=== PATIENT | male | born 1970 | race Caucasian/White ===

== ENCOUNTER 2020-02-29 00:23 | Emergency (ER) | payer OTHER, SELFPAY ==
--- NOTE | ~2020-02-29 | CT_ITS ---
EXAMINATION: CT wrist LT wo con DATE: 02/29/2020 03:07 INDICATION: Left wrist pain, possible fracture on CT TECHNIQUE: Computed tomography (CT) of the left wrist was performed without intravenous contrast. The dose-length product (DLP) was 344.99 mGy-cm. Automated exposure control and iterative reconstruction technique were employed. COMPARISON: None FINDINGS: There is a small acute, traumatic, closed, oblique fracture at the dorsal aspect of the tri quetral bone. There is adjacent soft tissue swelling. The remaining osseous structures are unremarkab le. Bone alignment is normal. IMPRESSION: 1. Acute triquetral fracture. Reviewed, dictated and finalized at location A.
--- NOTE | ~2020-02-29 | XR_ITS ---
EXAMINATION: XR hand LT min 3V INDICATION: Right hand pain TECHNIQUE: Three views of the right hand are obtained. COMPARISON: None available FINDINGS: There is no acute fracture, dislocation, or subluxation. Bone alignment is normal. 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 The soft tissues are unremarkable. IMPRESSION: 1. No acute osseous abnormality. Reviewed, dictated and finalized at location A.
--- NOTE | ~2020-02-29 | XR_ITS ---
EXAMINATION: XR wrist LT min 3V DATE: 02/29/2020 02:12 INDICATION: Left wrist pain, initial encounter TECHNIQUE: Posteroanterior, ulnar deviation, oblique, and lateral views of the left wrist were obtain ed. COMPARISON: None available FINDINGS: Subtle heterotopic ossification is seen dorsal to the carpal bones on the lateral view. The re is adjacent dorsal soft tissue swelling of the wrist. Bone alignment is normal. IMPRESSION: 1. Findings suspicious for triquetral fracture. Reviewed, dictated and finalized at location A.
--- NOTE | ~2020-02-29 | XR_ITS ---
EXAMINATION: XR hand RT min 3V INDICATION: Right hand pain TECHNIQUE: Three views of the right hand are obtained. COMPARISON: None available FINDINGS: There is no fracture, dislocation, or subluxation. Mild osteoarthritis is noted in multiple interphalangeal joints. The soft tissues are unremarkable. IMPRESSION: 1. No acute osseous abnormality. Reviewed, dictated and finalized at location A.
--- NOTE | ~2020-02-29 | CT_ITS ---
EXAMINATION: CT cervical spine wo con DATE: 02/29/2020 02:13 INDICATION: Neck pain TECHNIQUE: Computed tomography (CT) of the cervical spine was performed without intravenous contrast. The dose-length product (DLP) was 513.79 mGy-cm. Automated exposure control and iterative reconstruc tion technique were employed. COMPARISON: None FINDINGS: There is an acute fracture involving the C3 spinous process of the left of midline. No disl ocation or subluxation is identified. Mild loss of intervertebral disc space height is present at C4- 5 and C5-6. The vertebral body heights are maintained. The odontoid is intact. The prevertebral soft tissues are normal. There is mild multilevel facet and uncovertebral joint osteoarthritis. IMPRESSION: 1. Acute C3 spinous process fracture. This was discussed with Dr. Gibbs at 1245 hours on 02/29/2020. Reviewed, dictated and finalized at location A. IMPRESSION: 1. Acute C3 spinous process fracture. This was discussed with Dr. Gibbs at 124 5 hours on 02/29/2020.
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
--- NOTE | ~2020-02-29 | CT_ITS ---
EXAMINATION: CT brain wo con INDICATION: Head injury COMPARISON: None TECHNIQUE: Standard unenhanced head CT. The dose-length product (DLP) was 681.00 mGy-cm. The mA was a djusted according to patient size. Iterative reconstruction technique was employed. FINDINGS: There is no intracranial hemorrhage, acute infarction, or abnormal mass lesion. The ventric les are normal. There is no abnormal mass effect or midline shift. The yang-white matter differentiat ion is normal. The basal cisterns are patent. The orbits are normal. There is mild midline scalp soft tissue swelling. There is moderate mucosal thickening of the paranasal sinuses. IMPRESSION: 1. No acute intracranial abnormality. Reviewed, dictated and finalized at location A.
--- NOTE | ~2020-02-29 | XR_ITS ---
EXAMINATION: XR finger 1st RT min 2V INDICATION: Right first finger pain TECHNIQUE: Two views of the right first finger are obtained. COMPARISON: None available FINDINGS: There is no fracture, dislocation, or subluxation. A small osseous density at the lateral b ase of the first proximal phalanx may reflect prior injury. The soft tissues are unremarkable. IMPRESSION: 1. No acute osseous abnormality. Reviewed, dictated and finalized at location A.
--- NOTE | ~2020-02-29 | XR_ITS ---
EXAMINATION: XR wrist RT min 3V INDICATION: Right wrist pain TECHNIQUE: Four views of the right wrist are obtained. COMPARISON: None available FINDINGS: There is no fracture, dislocation, or subluxation. The bones, soft tissues, and joint space s are normal. IMPRESSION: 1. No acute osseous abnormality. Reviewed, dictated and finalized at location A.
--- NOTE | ~2020-02-29 | XR_ITS ---
EXAMINATION: XR finger 1st LT min 2V INDICATION: Left first finger pain TECHNIQUE: Two views of the left first finger are obtained. COMPARISON: None available FINDINGS: There is no acute fracture, dislocation, or subluxation. Mild osteoarthritis is noted. The soft tissues are unremarkable. IMPRESSION: 1. No acute osseous abnormality. Reviewed, dictated and finalized at location A.
[2020-02-29 00:23] VITALS: BP 120/83; PULSE 98; RESP 20; TEMP 36.8; O2SAT 97
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
[2020-02-29] MEDS: TETANUS,DIPHTHERIA,AC PERTUSSIS ADULT 0.5 ML (ADACEL) IM (01:26)
[2020-02-29] MEDS: ACETAMINOPHEN 500 MG TABLET 1000 MG PO (01:26)
[2020-02-29 01:34] LABS: Basophils Absolute Auto 0.05 K/mm3 (0.00-0.10); Basophils Percent Auto 0.3 % (0.0-1.0); Eosinophils Absolute Auto 0.02 K/mm3 (0.02-0.50); Eosinophils Percent Auto 0.1 % (1.0-6.0); Hematocrit 43.8 % (40.0-54.0); Hemoglobin 14.9 g/dL (14.0-18.0); Immature Granulocyte Absolute 0.14 K/mm3 (0.00-0.00); Immature Granulocyte Percent A 0.9 % (0.0-0.0); Lymphocytes Absolute Auto 1.17 K/mm3 (1.10-4.50); Lymphocytes Percent Auto 7.5 % (18.0-42.0); Mean Corpuscular Hemoglobin 31.7 pg (27.0-31.0); Mean Corpuscular Volume 93.2 fL (78.0-102.0); Monocytes Absolute Auto 1.03 K/mm3 (0.10-0.90); Monocytes Percent Auto 6.6 % (2.0-11.0); Neutrophils Absolute Auto 13.2 K/mm3 (1.7-7.2); Neutrophils Percent Auto 84.6 % (50.0-70.0); Platelet Count Result 192 K/mm3 (150-420); Red Cell Distribution Width 12.5 % (11.6-14.4); White Blood Count 15.6 K/mm3 (4.8-10.8)
[2020-02-29 01:43] LABS: Appearance Urine Clear (Clear); Bilirubin Urine Negative (Negative); Color Urine Yellow (Yellow); Glucose Urine UA Negative (Negative); Ketones Urine Trace (Negative); Leukocyte Esterase Ur Negative (Negative); Nitrate Urine Negative (Negative); Protein Urine Trace (Negative); Urobilinogen Urine 0.2 mg/dL (0.2-1.0); pH Urine 5.5 (5.0-8.0)
[2020-02-29 01:50] LABS: Alanine Aminotransferase 60 U/L (16-63); Albumin Level 3.8 g/dL (3.4-5.0); Alkaline Phosphatase 47 U/L (46-116); Aspartate Amino Transferase 65 U/L (15-37); Bilirubin,Total 0.3 mg/dL (0.00-1.00); Blood Urea Nitrogen 17 mg/dL (7-18); Calcium 8.3 mg/dL (8.5-10.1); Carbon Dioxide 24 mmol/L (21-32); Chloride 102 mmol/L (98-108); Estimated Glomerular Filt Rate > 60; Ethanol 116 mg/dL (0-6); Glucose 103 mg/dL (70-99); Osmolality Calculated 285 mOsm/kg (285-295); Sodium 137 mmol/L (136-145); Total Protein 7.3 g/dL (6.4-8.2)
[2020-02-29 01:57] LABS: Add Urine Microscopic? YES; Bacteria Urine None seen /hpf; Blood Urine Trace-Intact (Negative); Mucus Urine None seen /lpf; RBC Urine 0-2 /hpf (0-2); Squamous Epithelial Cell Urine Few /hpf (Few); WBC Urine None seen /hpf (0-3)
[2020-02-29 02:01] LABS: Amphetamine Screen Urine Negative (Negative); Barbiturate Screen Urine Negative (Negative); Benzodiazepines Screen Urine Negative (Negative); Cannabinoid Screen Urine Positive (Negative); Cocaine Screen Urine Negative (Negative); Methadone Screen Urine Negative (Negative); Opiate Screen Urine Negative (Negative); Phencyclidine Screen Urine Negative (Negative)
--- NOTE | 2020-02-29 04:22 | PC.NURSE ---
call to [facility] for transfer, report to maria eugenia, awaiting call back
--- NOTE | 2020-02-29 04:24 | PC.NURSE ---
splint applied to left wrist as instructed per dr oconnell, volar forearm splint.
[2020-02-29 05:05] VITALS: BP 111/66; PULSE 87; RESP 20; TEMP 36.6; O2SAT 98
--- NOTE | 2020-02-29 05:08 | PC.NURSE ---
pt to transfer to [facility], [facility] called. awaiting arrival.
[2020-02-29] MEDS: MORPHINE SULFATE 4 MG/ML INJ 6 MG IV PUSH (05:28)
[2020-02-29] MEDS: ONDANSETRON INJ 4 MG/2 ML VIAL IV PUSH (05:29)
[2020-02-29] MEDS: NEOMYCIN/POLYMYXIN/BACITRACIN OINTMENT 15 GM TUBE 1 APPLIC TOPICAL (06:05)
--- NOTE | 2020-02-29 06:08 | PC.NURSE ---
cervical collar applied for transfer per request, ocl to left wrist with arm sling intact, abrasion to forehead cleansed and neosporin/non stick telfa applied. report to ana pettit. pt loaded with cot.
[2020-02-29 06:16] VITALS: BP 105/75; PULSE 84; RESP 20; TEMP 37.1; O2SAT 97
== END 2020-02-29 06:15 | disposition short-term general hospital (02) ==
PROVIDERS: Emergency Provider Family Medicine; PCP Internal Medicine
DX: R20.2 Paresthesia of skin (principal); S00.93XA Contusion of unspecified part of head, initial encounter; S20.311A Abrasion of right front wall of thorax, initial encounter; S40.811A Abrasion of right upper arm, initial encounter; S62.115A Nondisplaced fracture of triquetrum [cuneiform] bone, left wrist, initial encounter for closed fracture; V86.59XA Driver of other special all-terrain or other off-road motor vehicle injured in nontraffic accident, initial encounter
CPT/HCPCS: 29125; 36415; 70450; 71260; 72125; 73110; 73130; 73140; 73200; 74177; 80053; 80307; 81001; 85025; 90471; 90715; 96374; 96375; 99285; A4565; J2270; J2405; L0150; Q9965

== ENCOUNTER 2020-03-30 08:40 | Outpatient (CLI) | payer OTHER, SELFPAY ==
--- NOTE | ~2020-03-30 | MR_ITS ---
EXAMINATION: MR abdomen wo/w con DATE: 03/30/2020 10:19 INDICATION: Right renal mass TECHNIQUE: Magnetic resonance imaging (MRI) of the abdomen was performed without and with 20 mL Multi duke intravenous contrast. Sequences included coronal T2-weighted SS-FSE, coronal and axial FS 2D-F IESTA, axial STIR FSE, axial T2-weighted SS-FSE, axial T2-weighted FS SS-FSE, axial diffusion-weighte d SE, axial dual-echo T1-weighted FSPGR, and axial and coronal T1-weighted LAVA. Postcontrast axial T 1-weighted LAVA images were obtained in a time course. Postcontrast coronal T1-weighted LAVA images w ere obtained. COMPARISON: CT abdomen and pelvis dated 02/29/2020 FINDINGS: Arch size is normal. No pericardial or pleural effusion. Discoid atelectasis/scarring in the left low er lobe. Liver, gallbladder, spleen, pancreas and bilateral adrenal glands are normal. T2 hyperintens e, nonenhancing cysts measuring 11 mm at the upper pole and 13 mm at the lower pole of the right kidn ey and 8 mm at the lower pole of the left kidney. 2.1 cm T1 hyperintense, T2 isointense to the protei naceous/hemorrhagic complex septated cystic lesion at the lower pole of the right kidney. There is pe rceptible enhancement along the thickened posterior inferior aspect of the septation which measures u p to 1-2 mm in thickness. No other enhancing or more nodular soft tissue component. Visualized portio n of the bowels are unremarkable. No pathologically enlarged abdominal lymphadenopathy. Small fat-con taining umbilical hernia. Bone marrow signal is normal. IMPRESSION: 1. 2.1 cm Bosniak 2F lesion at the lower pole of the right kidney with perceptible enhancement along the mildly thickened side of a single otherwise thin internal septation. Recommend follow-up pre and postcontrast MRI or CT in 6 months. Reviewed, dictated and finalized at location A. IMPRESSION: 1. 2.1 cm Bosniak 2F lesion at the lower pole of the right kidney with percepti ble enhancement along the mildly thickened side of a single otherwise thin inte rnal septation. Recommend follow-up pre and postcontrast MRI or CT in 6 months.
[2020-03-30 09:47] LABS: Basophils Absolute Auto 0.06 K/mm3 (0.00-0.10); Eosinophils Absolute Auto 0.36 K/mm3 (0.02-0.50); Eosinophils Percent Auto 5.9 % (1.0-6.0); Immature Granulocyte Absolute 0.05 K/mm3 (0.00-0.00); Immature Granulocyte Percent A 0.8 % (0.0-0.0); Lymphocytes Percent Auto 31.4 % (18.0-42.0); Mean Corpuscular HGB Conc 34.9 g/dL (32.0-36.0); Mean Corpuscular Hemoglobin 31.3 pg (27.0-31.0); Mean Corpuscular Volume 89.8 fL (78.0-102.0); Mean Platelet Volume 8.9 fl (8.7-11.0); Monocytes Absolute Auto 0.51 K/mm3 (0.10-0.90); Monocytes Percent Auto 8.4 % (2.0-11.0); Neutrophils Absolute Auto 3.2 K/mm3 (1.7-7.2); Neutrophils Percent Auto 52.5 % (50.0-70.0); Platelet Count Result 187 K/mm3 (150-420); Red Blood Count 4.79 M/mm3 (4.70-6.10); Red Cell Distribution Width 11.8 % (11.6-14.4); White Blood Count 6.1 K/mm3 (4.8-10.8)
--- NOTE | 2020-03-30 09:50 | ECG_ITS ---
Measurements Intervals Peterson Rate: 67 P: 64 WY: 141 QRS: 58 QRSD: 102 T: 47 QT: 373 QTc: 394 Interpretive Statements SINUS RHYTHM BASELINE WANDER- V1 NORMAL ECG Electronically Signed On 03-30-2020 10:02:46 CDT by Shiva Thomas D.O.
[2020-03-30 09:52] LABS: Add Urine Microscopic? NO; Appearance Urine Clear (Clear); Bilirubin Urine Negative (Negative); Blood Urine Negative (Negative); Color Urine Yellow (Yellow); Glucose Urine UA Negative (Negative); Ketones Urine Negative (Negative); Leukocyte Esterase Ur Negative LEU/UL (Negative); Nitrate Urine Negative (Negative); Protein Urine Negative (Negative); Specific Grav Ur 1.015 (1.010-1.020); Urobilinogen Urine 0.2 mg/dL (0.2-1.0); pH Urine 6.5 (5.0-8.0)
[2020-03-30 10:51] LABS: Anion Gap 10.4 mmol/L (7-16); Blood Urea Nitrogen 14 mg/dL (7-18); Calcium 9.2 mg/dL (8.5-10.1); Carbon Dioxide 28 mmol/L (21-32); Chloride 103 mmol/L (98-108); Estimated Glomerular Filt Rate > 60; Glucose 94 mg/dL (70-99); Osmolality Calculated 284 mOsm/kg (285-295); Potassium 4.4 mmol/L (3.5-5.1); Sodium 137 mmol/L (136-145)
[2020-03-30 14:08] LABS: Alanine Aminotransferase 52 U/L (16-63); Albumin Level 3.7 g/dL (3.4-5.0); Alkaline Phosphatase 50 U/L (46-116); Aspartate Amino Transferase 16 U/L (15-37); Bilirubin Direct 0.1 mg/dL (0-0.2); Bilirubin,Total 0.3 mg/dL (0.00-1.00); Total Protein 6.9 g/dL (6.4-8.2)
[2020-03-31 17:15] LABS: GGT 76 U/L (15-85)
== END 2020-03-30 08:41 | disposition home or self-care (01) ==
LOC: CHSIMG 08:44
PROVIDERS: PCP Internal Medicine; Visit Provider Internal Medicine
DX: Z01.818 Encounter for other preprocedural examination (principal); R94.5 Abnormal results of liver function studies
CPT/HCPCS: 36415; 74183; 80048; 80076; 81003; 82977; 85025; 93005; A9577

== ENCOUNTER 2020-09-22 09:58 | Outpatient (CLI) | payer OTHER, SELFPAY ==
--- NOTE | ~2020-09-22 | MR_ITS ---
EXAMINATION: MR renal wo/w con DATE: 09/22/2020 11:01 INDICATION: Right kidney mass. TECHNIQUE: Magnetic resonance imaging (MRI) of the abdomen was performed without and with 17 mm Multi Daniel intravenous contrast. Sequences included coronal T2-weighted FS FSE, coronal and axial FIESTA F S, coronal LAVA-flex, axial LAVA, axial T2-weighted FSE, axial T1-weighted dual-echo FSPGR, axial STI R FSE, and axial DWI. Postcontrast sequences included coronal LAVA-flex and a time course of axial LA VA. COMPARISON: Abdomen MRI 03/30/2020 FINDINGS: The liver, spleen, gallbladder, pancreas, and adrenal glands are normal. There are simple cysts in th e kidneys measuring up to 13 mm on the right. There is a 2.2 cm cystic mass in right kidney with sept ation with focal thickening to 2 mm with enhancement. There are no dilated loops of bowel. There are no pathologically enlarged lymph nodes. There is no free intraperitoneal fluid. IMPRESSION: 1. Stable 2.2 cm Bosniak 2F cystic lesion of right kidney. Abdomen MRI without and with contrast is r ecommended in 6 months. Reviewed, dictated and finalized at location A. 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 Stable 2.2 cm Bosniak 2F cystic lesion of right kidney. Abdomen MRI without and with contrast is recommended in 6 months.
[2020-09-22 10:35] LABS: Estimated Glomerular Filt Rate > 60
== END 2020-09-22 09:59 | disposition home or self-care (01) ==
LOC: ANHIMG 10:02
PROVIDERS: PCP Internal Medicine; Visit Provider Urology
DX: N28.89 Other specified disorders of kidney and ureter (principal)
CPT/HCPCS: 74183; A9577

== ENCOUNTER 2021-02-21 11:47 | Outpatient (CLI) | payer OTHER, SELFPAY ==
[2021-02-21 11:59] LABS: Basophils Absolute Auto 0.05 K/mm3 (0.00-0.10); Basophils Percent Auto 0.7 % (0.0-1.0); Eosinophils Absolute Auto 0.29 K/mm3 (0.02-0.50); Eosinophils Percent Auto 4.2 % (1.0-6.0); Hematocrit 46.1 % (40.0-54.0); Hemoglobin 15.6 g/dL (14.0-18.0); Immature Granulocyte Absolute 0.03 K/mm3 (0.00-0.00); Immature Granulocyte Percent A 0.4 % (0.0-0.0); Lymphocytes Absolute Auto 2.09 K/mm3 (1.10-4.50); Lymphocytes Percent Auto 30.6 % (18.0-42.0); Mean Corpuscular HGB Conc 33.8 g/dL (32.0-36.0); Mean Corpuscular Hemoglobin 31.1 pg (27.0-31.0); Monocytes Absolute Auto 0.61 K/mm3 (0.10-0.90); Monocytes Percent Auto 8.9 % (2.0-11.0); Neutrophils Absolute Auto 3.8 K/mm3 (1.7-7.2); Neutrophils Percent Auto 55.2 % (50.0-70.0); Platelet Count Result 188 K/mm3 (150-420); Red Blood Count 5.01 M/mm3 (4.70-6.10); Red Cell Distribution Width 12.2 % (11.6-14.4); White Blood Count 6.8 K/mm3 (4.8-10.8)
[2021-02-21 12:00] LABS: Appearance Urine Clear (Clear); Bilirubin Urine Negative (Negative); Blood Urine Negative (Negative); Glucose Urine UA Negative (Negative); Ketones Urine Negative (Negative); Leukocyte Esterase Ur Negative (Negative); Nitrate Urine Negative (Negative); Protein Urine Negative (Negative); Specific Grav Ur <= 1.005 (1.010-1.020); Urobilinogen Urine 0.2 mg/dL (0.2-1.0)
[2021-02-21 12:01] LABS: Add Urine Microscopic? NO; Color Urine Light Yellow (Yellow)
[2021-02-21 13:00] LABS: Alanine Aminotransferase 27 U/L (16-63); Albumin Level 4.1 g/dL (3.4-5.0); Alkaline Phosphatase 53 U/L (46-116); Anion Gap 12 mmol/L (8-16); Aspartate Amino Transferase 12 U/L (15-37); Bilirubin,Total 0.6 mg/dL (0.00-1.00); Blood Urea Nitrogen 15 mg/dL (7-18); CRP < 0.5 mg/dL (0.0-0.9); Calcium 9.1 mg/dL (8.5-10.1); Carbon Dioxide 24 mmol/L (21-32); Chloride 103 mmol/L (98-108); Cholesterol 160 mg/dL (0-200); Estimated Glomerular Filt Rate > 60; Glucose 91 mg/dL (70-99); HDL Direct 41 mg/dL (40-60); LDL Cholesterol Calculated 105 mg/dL (<130); Osmolality Calculated 288 mOsm/kg (285-295); Potassium 4.3 mmol/L (3.5-5.1); Prostate Specific Antigen 1.7 ng/mL (< OR = 4.0); Sodium 139 mmol/L (136-145); Thyroid Stimulating Hormone 1.36 uIU/mL (0.36-3.74); Total Protein 7.2 g/dL (6.4-8.2); Triglycerides 69 mg/dL (0-150)
== END 2021-02-21 11:48 | disposition home or self-care (01) ==
LOC: CHSLAB 11:49
PROVIDERS: PCP Internal Medicine; Visit Provider Internal Medicine
DX: Z00.00 Encounter for general adult medical examination without abnormal findings (principal); R51.9 Headache, unspecified; Z12.5 Encounter for screening for malignant neoplasm of prostate
CPT/HCPCS: 36415; 80053; 80061; 81003; 84153; 84443; 85025; 86140; G0103

== ENCOUNTER 2021-04-19 16:45 | Outpatient (CLI) | payer OTHER, SELFPAY ==
--- NOTE | ~2021-04-19 | MR_ITS ---
EXAMINATION: MR abdomen wo/w con DATE: 04/19/2021 18:55 INDICATION: Right kidney mass. TECHNIQUE: Magnetic resonance imaging (MRI) of the abdomen was performed without and with 15 mL Multi Daniel intravenous contrast. Sequences included coronal T2-weighted FS FSE, coronal and axial FIESTA F S, coronal LAVA-flex, axial LAVA, axial T2-weighted FSE, axial T1-weighted dual-echo FSPGR, axial STI R FSE, and axial DWI. Postcontrast sequences included coronal LAVA-flex and a time course of axial LA VA. COMPARISON: Abdomen MRI 09/22/2020, 03/30/2020 FINDINGS: The liver, gallbladder, spleen, and adrenal glands are normal. Pancreas divisum is noted. There are c ysts in the kidneys measuring up to 14 mm on the right. In the right kidney, there is a 2.2 cm cystic lesion with septum with focal thickening to 2 mm with enhancement. There are no dilated loops of bow el. There are no pathologically enlarged lymph nodes. There is no free intraperitoneal fluid. IMPRESSION: 1. 2.2 cm Bosniak 2F cystic lesion in right kidney, stable from 03/30/20. Abdomen MRI without and with contrast is recommended in 6 months. Reviewed, dictated and finalized at location A. IMPRESSION: 1. 2.2 cm Bosniak 2F cystic lesion in right kidney, stable from 03/30/20. Abdome n MRI without and with contrast is recommended in 6 months.
[2021-04-19 17:43] LABS: Estimated Glomerular Filt Rate > 60
== END 2021-04-19 16:46 | disposition home or self-care (01) ==
PROVIDERS: PCP Internal Medicine; Visit Provider Urology
DX: N28.89 Other specified disorders of kidney and ureter (principal)
CPT/HCPCS: 74183; A9577

== ENCOUNTER 2021-08-01 09:48 | Outpatient (CLI) | payer OTHER, SELFPAY ==
[2021-08-01 11:03] LABS: SARS-CoV-2 RNA PCR Negative (Negative)
== END 2021-08-01 09:49 | disposition home or self-care (01) ==
LOC: CHSLAB 09:51
PROVIDERS: PCP Internal Medicine; Visit Provider Internal Medicine
DX: Z20.822 Contact with and (suspected) exposure to COVID-19 (principal)
CPT/HCPCS: C9803; U0003; U0005

== ENCOUNTER 2022-06-02 14:40 | Outpatient (CLI) | payer OTHER, SELFPAY ==
--- NOTE | ~2022-06-02 | MR_ITS ---
EXAMINATION: MR abdomen wo/w con DATE: 06/02/2022 15:47 INDICATION: Renal mass TECHNIQUE: Magnetic resonance imaging (MRI) of the abdomen was performed without intravenous contrast . Sequences included coronal T2-weighted SS-FSE, coronal and axial FS 2D-FIESTA, axial STIR FSE, axi al T2-weighted SS-FSE, axial T2-weighted FS SS-FSE, axial diffusion-weighted SE, axial dual-echo T1-w eighted FSPGR, and axial and coronal T1-weighted LAVA. Postcontrast axial T1-weighted LAVA images wer e obtained in a time course. Postcontrast coronal T1-weighted LAVA images were obtained. COMPARISON: None. FINDINGS: Heart size is normal. No pericardial or pleural effusion. Liver, gallbladder, spleen, pancreas and bi lateral adrenal glands are normal. No significant interval change in a 2.3 cm complex exophytic cysti c lesion at the lower pole of the right kidney with nonenhancing complex proteinaceous/hemorrhagic fl uid with greater T1 and low T2 signal than for simple fluid. No change in the small 2 mm region of th ickening along the posterior margin of a single thin internal septation which demonstrates discernibl e enhancement consistent with a Bosniak 2F lesion. Additional smaller simple appearing T2 hyperintens e nonenhancing cysts are seen in both kidneys. Visualized portion of the bowels are normal. Bladder i s normal. No pathologically enlarged abdominal lymphadenopathy. No evident free fluid. Normal bone ma rrow signal throughout. IMPRESSION: 1. No significant interval change in a 2.3 cm Bosniak 2F cystic right renal lesion. Recommend continu ed annual follow-up is, which is typically continued until 5 years of stability can be demonstrated. Reviewed, dictated and finalized at location A. IMPRESSION: 1. No significant interval change in a 2.3 cm Bosniak 2F cystic right renal les ion. Recommend continued annual follow-up is, which is typically continued unti l 5 years of stability can be demonstrated.
== END 2022-06-02 14:41 | disposition home or self-care (01) ==
PROVIDERS: PCP Internal Medicine; Visit Provider Urology
DX: N28.89 Other specified disorders of kidney and ureter (principal)
CPT/HCPCS: 74183; A9577

== ENCOUNTER 2024-02-12 15:51 | Outpatient (CLI) | payer OTHER, SELFPAY ==
--- NOTE | ~2024-02-12 | CT_ITS ---
CT Scan of the Chest without Contrast: Clinical Indication: Lung cancer screening, smoking history Technique: Contiguous sections were acquired throughout the chest without intravenous contrast. Dose reduction technique was used on this scan by utilizing automated exposure control and iterative recon struction technique. The dose-length product (DLP) was 115.56 mGy-cm. COMPARISON: 02/29/2020 Findings: There is no evidence of any significant mediastinal, hilar or axillary lymphadenopathy. Calcified rig ht hilar lymph nodes are present. The mediastinal soft tissues appear normal. There is no evidence of pleural or pericardial effusion. The lungs are clear, aside from calcified right middle lobe granuloma. Images through the upper abdomen reveal no abnormalities. Impression: Lung RADS 2: Benign appearance. 12 month follow-up screening CT advised. Reviewed, dictated and finalized at [facility]. Impression: Lung RADS 2: Benign appearance. 12 month follow-up screening CT advised.
== END 2024-02-12 15:52 | disposition home or self-care (01) ==
PROVIDERS: PCP Internal Medicine; Visit Provider Internal Medicine
DX: Z12.2 Encounter for screening for malignant neoplasm of respiratory organs (principal); Z87.891 Personal history of nicotine dependence
CPT/HCPCS: 71271

== ENCOUNTER 2024-03-10 06:54 | Day surgery (SDC) | payer OTHER, SELFPAY ==
[2024-01-30 10:45] VITALS: BMI 28.8
--- NOTE | 2024-03-10 06:50 | P.PNAN_ITS ---
Anes - Initial Pre Proc Eval Procedure: Operation Date: 03/10/24 09:00 Proposed Procedures p Screening Colonoscopy - Francisco Shirley DO Date/Time: 03/10/24 06:50 Surgeon: Francisco Shirley DO Pre Op Diagnosis: Neoplasm Screening Patient Data Age: 54 Gender: M Height: 1.8 m Weight: 93.531 kg Allergies Allergy/AdvReac Type Severity Reaction Status Date / Time No Known Allergies Allergy Verified 03/10/24 07:39 Home Medications Medication Instructions Recorded Confirmed Type naproxen sodium 220 mg tablet 220 mg PO BID PRN Pain 03/10/24 03/10/24 History (Aleve) Patient hx anesthesia problems: none Family hx anesthesia problems: none Results Review: All pre-operative results and documents have been reviewed as part of the pre- operative evaluation. [facility] Past Medical History Medical History (Updated 03/10/24 @ 09:34 by Francisco Shirley DO) Patient denies significant medical history Social History Social History (Updated 03/10/24 @ 09:38 by Keenan Gleason DO) Social History: with children Smoking packs per day: 1 Smoking cigarettes per day: 20.0 Years smoked: 30 Smoking pack-years: 30.00 Smoking status: Former smoker Additional smoking assessment comments: quit 16 months ago Alcohol intake: current Drinks per week: 15 Alcohol use details: 6-8 a day most days Substance use: current Substance use type: marijuana Other substance usage details: most days Anes - Eval Final PreProcedure Day of Procedure 03/10/24 06:50 Patient weight: overweight Heart: regular rate and rhythm Lungs: clear to auscultation Airway: Mallampati scale class II Neurological: alert and oriented Last oral intake: >/= 8 hours ASA classification: III Emergent: no Anesthetic plan: proceed Anesthesia type and monitoring: general GIVS and standard monitoring Results Review: All pre-operative results and documents have been reviewed as part of the pre- operative evaluation. Informed Consent: The patient's anesthetic plan and its attendant risks and benefits were discussed with the patient/family/POA. Questions were solicited and answers provided to the satisfaction of the patient/family/POA.
[2024-03-10 07:52] VITALS: BP 115/90; PULSE 64; RESP 14; TEMP 36.7; O2SAT 99; BMI 27.5
[2024-03-10] MEDS: LACTATED RINGERS 1,000 ML 150 ML IV CONT (08:07)
--- NOTE | 2024-03-10 09:32 | PM.IMHP ---
H&P: HPI History of Present Illness Date/Time: 03/10/24 09:32 Chief Complaint: family history of colon cancer Narrative: this is a 54-year-old man presents for colonoscopy. He has never had a colonoscopy before. He denies any hematochezia or melena. his have a family history of colon cancer in his father who was diagnosed in his 60s Review of Systems Review of Systems: All systems reviewed & are unremarkable except as noted in HPI and below Constitutional: Constitutional: Denies chills, Denies fever(s), Denies headache(s) and Denies weight loss Eyes: Eyes: Denies change in vision ENT: Denies dizziness, Denies headache(s), Denies neck mass and Denies throat swelling Cardiovascular: Cardiovascular: Denies chest pain, Denies lightheadedness and Denies dyspnea Respiratory: Respiratory: Denies cough, Denies dyspnea and Denies wheezing Gastrointestinal: Gastrointestinal: Denies abdominal pain, Denies change in bowel habits, Denies nausea and Denies vomiting Genitourinary: Genitourinary: Denies hematuria and Denies dysuria Musculoskeletal: Musculoskeletal: Reports as per HPI Integumentary/Breasts: Skin/Breast: Reports as per HPI Neurologic: Denies dizziness and Denies headache(s) Allergic/Immunologic: Allergic/Immunologic: Denies throat swelling and Denies wheezing PMF Past Medical History Medical History (Updated 03/10/24 @ 09:34 by Francisco Shirley DO) Patient denies significant medical history Social History Social History (Updated 02/29/20 @ 05:50 by Manjinder Rojas, ) Social History: with children Smoking packs per day: 1 Smoking cigarettes per day: 20.0 Years smoked: 30 Smoking pack-years: 30.00 Smoking status: Former smoker Additional smoking assessment comments: quit 16 months ago Alcohol intake: current Drinks per week: 15 Alcohol use details: beer Substance use type: does not use Meds Home Medications and Allergies Home Medications Medication Instructions Recorded Confirmed Type naproxen sodium 220 mg tablet 220 mg PO BID PRN Pain 03/10/24 03/10/24 History (Aleve) Allergies Allergy/AdvReac Type Severity Reaction Status Date / Time No Known Allergies Allergy Verified 03/10/24 07:39 Vital Signs Vital Signs - 24 hr 03/10/24 07:52 Temperature 36.7 C Pulse Rate 64 Respiratory Rate 14 Blood Pressure 115/90 Pulse Oximetry 99 Oxygen Delivery Room Air Exam Const: General: no acute distress and alert Orientation/consciousness: patient oriented x3 HENMT: Head: normocephalic and atraumatic Ears: hearing grossly normal bilaterally Face/Nose/Sinus: Normal nares present Mouth: Yes Normal oral and palatal mucosa present Eyes: Periorbital: periorbital findings normal Sclera: sclerae normal EOM: EOMs intact bilaterally Neck: Neck: normal visual inspection, no lymphadenopathy and trachea midline Chest: Chest palpation & inspection: normal inspection of the chest Resp: Effort & Inspection: normal respiratory effort Auscultation: clear to auscultation bilaterally Cardio: Jugular venous distension: no JVD Rate: regular rate Rhythm: regular rhythm Heart sounds: S1 normal heart sound present and S2 normal heart sound present Peripheral pulses: Peripheral pulses 2+ throughout GI: Inspection: normal to inspection GI Palp: Yes Soft to palpation, No Tenderness to palpation present (GI), No Guarding due to palpation present (GI) and No Rebound tenderness present Percussion: Yes normal to percussion Auscultation: normal bowel sounds : General: Yes no CVA tenderness Back/Spine/Pelvis: Back: no CVA tenderness Neuro: General: patient oriented x3, no focal motor deficits and CN's II-XI intact bilaterally Cognition (Neuro): normal cognition Speech: normal speech Motor exam (neuro): 5/5 motor strength present throughout Extrem: General: capillary refill normal and no clubbing, cyanosis or edema Assessment and Plan Assessme
[2024-03-10 10:04] VITALS: BP 98/70; PULSE 65; RESP 16; O2SAT 99
[2024-03-10 10:14] VITALS: BP 104/80; PULSE 65; RESP 16; O2SAT 99
[2024-03-10 10:24] VITALS: BP 116/84; PULSE 64; RESP 18; O2SAT 98
--- NOTE | 2024-03-10 10:43 | WPDANESPN ---
Anes - Prog Note Post-Op Date/Time: 03/10/24 10:43 Cardiovascular status: normal Respiratory status: normal Airway patency: baseline Mental status: baseline Post-Op hydration status: normal Vital Signs: Last Vital Signs Temp 36.7 C 03/10/24 07:52 Pulse 64 03/10/24 10:24 Resp 18 03/10/24 10:24 BP 116/84 03/10/24 10:24 Pulse Ox 98 03/10/24 10:24 O2 Del Method Room Air 03/10/24 10:24 Pain Score (VAS): 0 I/O: Intake & Output 03/09/24 03/10/24 03/10/24 23:59 07:59 15:59 Intake Total 100 Balance 100 Post-procedural complaints: none Patient Feedback: Patient satisfied with anesthetic care. Other Findings: Patient vital signs back to baseline. Patient denies nausea and vomiting. Patient's pain under control. Patient OK for discharge.
== END 2024-03-10 10:31 | disposition home or self-care (01) ==
PROVIDERS: PCP Internal Medicine; Visit Provider Surgery
PROC: 0DJD8ZZ Inspection of Lower Intestinal Tract, Via Natural or Artificial Opening Endoscopic (ICD-10-PCS; CPT 45378; principal; 2024-03-10 09:00)
DX: Z80.0 Family history of malignant neoplasm of digestive organs (principal); D12.8 Benign neoplasm of rectum; K57.30 Diverticulosis of large intestine without perforation or abscess without bleeding
CPT/HCPCS: 45385

== ENCOUNTER 2024-03-10 10:21 | Outpatient (NON) | payer OTHER, SELFPAY | END 2024-03-10 10:22 | disposition home or self-care (01) | LOC: ANHLAB 03-11 10:24 | PROVIDERS: PCP Internal Medicine; Visit Provider Surgery | DX: Z12.11 Encounter for screening for malignant neoplasm of colon (principal); Z80.0 Family history of malignant neoplasm of digestive organs | CPT/HCPCS: 88305 ==

== ENCOUNTER 2024-08-07 15:51 | Outpatient (CLI) | payer OTHER, SELFPAY ==
--- NOTE | 2024-08-07 15:55 | ECHO_ITS ---
Patient Info Name: Dakota Wilde Age: 54 years : 1970 Gender: Male Ht: 72 in Wt: 205 lbs BSA: 2.19 m2 HR: 75 bpm BP: 133 / 76 mmHg Heart Rhythm: Sinus Rhythm Technical Quality: Good Exam Date: 08/07/2024 4:42 PM Exam Location: Echo Lab Patient Status: Outpatient Admit Date: 08/07/2024 Staff Ordering Physician: Myles Capellan MD Internal Investigator: Racheal Elam RDCS Attending Provider: Myles Capellan MD Exam Type: CA echo doppler color flow Study Info Indications - dizziness Complete two-dimensional, color flow and Doppler transthoracic echocardiogram is performed. Summary 1. Complete two-dimensional, color flow and Doppler transthoracic echocardiogram is performed. 2. Left ventricular chamber dimension is normal. 3. Left ventricular systolic function is normal, estimated at 60-65%. 4. The left ventricular diastolic function is grade I diastolic dysfunction. 5. E/e' 6 is not elevated. 6. Left atrial chamber dimension is mildly enlarged. 7. There is trace mitral valve regurgitation. 8. There is trace tricuspid valve regurgitation. 9. No pulmonary hypertension, estimated pulmonary arterial systolic pressure is 26 mmHg. Left Ventricle E/e' 6 is not elevated. Left ventricular chamber dimension is normal. Left ventricular systolic function is normal, estimated at 60-65%. The left ventricular diastolic function is grade I diastolic dysfunction. Right Ventricle Right ventricular chamber dimension is normal. Right ventricular systolic function is normal and with normal TAPSE 2.1 cm. Left Atria Left atrial chamber dimension is mildly enlarged. Right Atria Right atrial chamber dimension is normal. Aortic Valve The aortic valve is trileaflet. There is no aortic valve stenosis. There is no aortic valve regurgitation. Pulmonic Valve There is no pulmonic regurgitation. Mitral Valve There is no mitral valve stenosis. There is trace mitral valve regurgitation. Tricuspid Valve There is trace tricuspid valve regurgitation. No pulmonary hypertension, estimated pulmonary arterial systolic pressure is 26 mmHg. Pericardium/Pleural There is no pericardial effusion. Inferior Vena Cava Normal inferior vena cava with >50% collapse upon inspiration consistent with normal right atrial pressure, 5 mmHg. Aorta The aortic root size at the sinus of Valsalva is normal. Left Ventricular Outflow Tract Name Value Normal LVOT 2D LVOT Diameter 2.1 cm LVOT Doppler LVOT Peak Velocity 105 cm/s LVOT Peak Gradient 4 mmHg LVOT Mean Gradient 2 mmHg LVOT VTI 21 cm LVOT VTI/AV VTI Ratio 0.9 LVOT Stroke Volume 73 ml Pulmonic Valve Name Value Normal RVOT Doppler RVOT Peak Gradient 2 mmHg PV Doppler PV Peak Velocity 86 cm/s PV Peak Gradient 3 mmHg PV Regurgitation Doppler WA Peak End Diastolic Velocity 51 cm/s Mitral Valve Name Value Normal MV Doppler MV Decel [place] 294 cm/s2 MV PHT 52 ms MV Area (PHT) 4.3 cm2 4.0-5.0 MV Diastolic Function MV E Peak Velocity 52 cm/s MV A Peak Velocity 59 cm/s MV E/A 0.9 MV Decel Time 178 ms Tricuspid Valve Name Value Normal TV Regurgitation Doppler TR Peak Velocity 230 cm/s TR Peak Gradient 20 mmHg Estimated PAP/RSVP RA Pressure 5 mmHg <=5 PA Systolic Pressure 26 mmHg <36 RV Systolic Pressure 26 mmHg <36 Aorta Name Value Normal Ascending Aorta Ao Root Diameter (MM) 3.3 cm Ao Root Diam Index (MM) 1.5 cm/m2 Ao [place] Diameter 3.0 cm 2.6-3.2 Aortic Valve Name Value Normal AV Doppler AV Peak Velocity 115 cm/s AV Peak Gradient 5 mmHg AV Mean Gradient 3 mmHg AV VTI 24 cm AV Area (Cont Eq VTI) 3.1 cm2 >=3.0 AV Area (Cont Eq Mario) 3.2 cm2 AV V1/V2 Ratio 0.91 AV Regurgitation 2D LVOT Area 3.6 cm2 Ventricles Name Value Normal LV Dimensions 2D/MM IVS Diastolic Thickness (2D) 1.2 cm 0.6-1.0 LVID Diastole (2D) 4.0 cm 4.2-5.8 LVIW Diastolic Thickness (2D) 1.5 cm 0.6-1.0 LVID Systole (2D) 2.7 cm 2.5-4.0 LVOT Diameter 2.1 cm LV Mass (2D Cubed) 199.36 g 88.00-224.00 LV Mass Index (2D Cubed) 91 g/m2 49-115 Relative Wall Thickness (2D) 0.75 LV Fractional Shortening/Ejection Fraction 2D/MM LV Fractional Shortening (2D) 32 % 25-43 LV EF (2D Teicholz) 61 % 52-72 LV Diastolic Volume (4C MOD) 95 ml LV EF (4C MOD) 43 % LV Diastolic Volume (2C MOD) 91 ml LV EF (2C MOD) 64 % LV Diastolic Volume (BP MOD) 94 ml 62-150 LV Diastolic Volume Index (BP MOD) 43 ml/m2 34-74 LV Systolic Volume (BP MOD) 43 ml 21-61 LV Systolic Volume Index (BP MOD) 19 ml/m2 11-31 LV EF (BP MOD) 55 % 52-72 LV Diastolic Length (4C) 7.3 cm LV Systolic Length (4C) 6.0 cm LV Stroke Volume (4C MOD) 41 ml Atria Name Value Normal LA Dimensions LA Dimension (MM) 3.8 cm 3.0-4.1 LA Volume (4C A-L) 48 ml LA Volume (BP A-L) 55 ml RA Dimensions RA Area (4C) 17.0 cm2 <=18.0 Report Signatures
== END 2024-08-07 15:52 | disposition home or self-care (01) ==
PROVIDERS: PCP Internal Medicine; Visit Provider Internal Medicine
DX: R51.9 Headache, unspecified (principal); R42 Dizziness and giddiness; I51.7 Cardiomegaly
CPT/HCPCS: 93306

== ENCOUNTER 2024-08-11 07:49 | Outpatient (CLI) | payer OTHER, SELFPAY ==
--- NOTE | ~2024-08-11 | CT_ITS ---
EXAMINATION: CTA brain carotid DATE: 08/11/2024 08:28 INDICATION: Dizziness. Frontal headache. TECHNIQUE: Computed tomographic angiography (CTA) of the head was performed without and with 100 mL O mnipaque-350 intravenous contrast. CTA of the neck was performed with intravenous contrast. Automated exposure control and iterative reconstruction technique were employed. The dose-length product was 1 818.78 mGy-cm. Maximum intensity projection and volume rendered 3D-reconstructions were created by amy milian technologist on a separate workstation. COMPARISON: Head CT 02/29/2020 FINDINGS: HEAD CTA: There is no intracranial hemorrhage, acute infarction, or abnormal intracranial mass lesion . The ventricles are normal in size. There is mucosal thickening in the paranasal sinuses. The mastoi d air cells are normal. The orbits are normal. Right vertebral artery is dominant. There is no signif icant stenosis of basilar artery or the posterior cerebral arteries. The posterior communicating richrad nimo are normal. There is no significant stenosis of intracranial internal carotid arteries or anteri or or middle cerebral arteries. Anterior communicating artery is normal. There is no aneurysm. NECK CTA: There is mild scarring at the lung apices. There are no pathologically enlarged lymph nodes . There is no significant stenosis of the vertebral arteries. There is minimal plaque in the proximal internal carotid arteries. There is 0% stenosis of the proximal right internal carotid artery relati ve to normal distal artery lumen diameter (NASCET criteria). There is 0% stenosis of the proximal lef t internal carotid artery relative to normal distal artery lumen diameter. There is a disc replacemen t at C4-C5. There is mild cervical spondylosis. IMPRESSION: 1. Normal brain. No aneurysm or significant intracranial arterial stenosis 2. 0% stenosis of the proximal internal carotid arteries relative to normal distal artery lumen diame ters (NASCET criteria). Reviewed, dictated and finalized at location A. AGE GRINDER IMPRESSION: 1. Normal brain. No aneurysm or significant intracranial arterial stenosis 2. 0% stenosis of the proximal internal carotid arteries relative to normal dis tyrone artery lumen diameters (NASCET criteria).
== END 2024-08-11 07:50 | disposition home or self-care (01) ==
LOC: CHSIMG 07:52
PROVIDERS: PCP Internal Medicine; Visit Provider Internal Medicine
DX: R51.9 Headache, unspecified (principal)
CPT/HCPCS: 70496; 70498; Q9967

== ENCOUNTER 2025-03-13 07:56 | Outpatient (CLI) | payer OTHER, SELFPAY | END 2025-03-13 07:57 | disposition home or self-care (01) | LOC: ANHAUDIO 07:57 | PROVIDERS: PCP Otolaryngology Otolaryngology/Facial Plastic Surgery; Visit Provider Otolaryngology Otolaryngology/Facial Plastic Surgery | DX: R42 Dizziness and giddiness (principal); H90.3 Sensorineural hearing loss, bilateral | CPT/HCPCS: 92557; 92567 ==